=== PATIENT | male | born 1995 | race Caucasian/White ===

== ENCOUNTER 2022-07-04 13:35 | Emergency (ER) | payer OTHER ==
[2022-07-04 13:46] VITALS: BP 170/84
--- NOTE | 2022-07-04 14:35 | XRAY Report ---
PROCEDURE: Ankle 3 View LT INDICATIONS: Trauma TECHNIQUE: 3 views of the ankle were acquired. COMPARISON: None. FINDINGS: Bones: There is a nondisplaced oblique fracture involving the base of the left fifth metatarsal. Oth er visualized osseous structures appear intact. Normal alignment. Ankle mortise appears intact. No duenas spicious bony lesions. Soft tissues: No tibiotalar joint effusion. Achilles tendon appears normal. Moderate soft tissue s welling overlying the lateral malleolus. IMPRESSION: Nondisplaced base of left fifth metatarsal fracture. Moderate soft tissue swelling overlying the late ral malleolus. Reviewed by: Tim Brand MD on 07/04/2022 2:34 PM PDT Approved by: Tim Brand MD on 07/04/2022 2:34 PM PDT Station ID: [id number]
[2022-07-04] MEDS ORDERED: oxyCODONE 5 MG TABLET PO STA (15:11)
--- NOTE | 2022-07-04 15:18 | ED Physician Documentation ---
History of Present Illness - Stated complaint Stated Complaint: LT ANKLE SWOLLEN - Chief complaint Chief Complaint: Trauma Ext - Additonal information Additional information: 27-year-old male presents emergency department for evaluation of acute left foot and ankle pain. Was playing basketball when he landed on another player's foot inverting the ankle. He had immediate pain as well as swelling on the lateral malleoli are area. Unable to bear weight. No history of previous injury. Review of Systems Musculoskeletal: reports: Extremity pain, Joint pain PD PAST MEDICAL HISTORY - Present Medications Home Medications: Ambulatory Orders Medication Instructions Recorded Confirmed oxyCODONE [Roxicodone] 5 mg PO TID PRN #20 tablet 07/04/22 - Allergies Allergies/Adverse Reactions: Allergies Allergy/AdvReac Type Severity Reaction Status Date / Time No Known Drug Allergies Allergy Verified 07/04/22 13:46 PD ED PE EXPANDED - Extremities Extremities: Left ankle (Significant swelling and ecchymosis of the lateral malleolus. Tenderness is elicited just distal to this region. Some tenderness elicited at the base of the fifth metatarsal. 2+ DP pulse. Neurovascular intact. No obvious deformity) Results - Vitals Vitals: Vital Signs - 24 hr 07/04/22 13:44 Temperature 36.7 C Heart Rate 80 Respiratory 16 Rate Blood Pressure 170/84 H O2 Saturation 100 Oxygen O2 Source Room air - Rads (name of study) left ankle Relevant Findings:: Final report received (Nondisplaced fracture at the base of the left fifth metatarsal. Moderate soft tissue swelling overlying the lateral malleolus) PD Medical Decision Making - ED course Complexity details: reviewed results, re-evaluated patient, d/w patient ED course: 27-year-old male presents emergency department for evaluation of acute left ankle and foot pain. He inverted the ankle when Playing football. On exam he has significant swelling and ecchymosis distal to the lateral malleolus but there is also pain at the base of the lateral foot. An x-ray is interpreted by the radiologist shows a nondisplaced left fifth metatarsal fracture. Given this injury the patient was placed in a 3 sided short leg fiberglass splint. Neurovascular intact post splinting. Patient was advised that this is a nonweightbearing injury. He was given crutches. Routine splint care was also discussed. Patient will follow-up with [facility] on Thursday to obtain the appropriate orthopedics referral. A limited prescription for oxycodone has been sent to the patient's preferred pharmacy. The usual emergent return precautions were discussed I am prescribing a short course of short-acting opioid pain medication for this patient. 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 I have discussed that the opioids are for short term therapy only, and will not be refilled from the ED. Departure - Departure Disposition: 01 Home, Self Care Clinical Impression: Metatarsal stress fracture of left foot Qualifiers: Encounter type: initial encounter Qualified Code(s): M84.375A - Stress fracture, left foot, initial encounter for fracture Condition: Stable Record reviewed to determine appropriate education?: Yes Instructions: ED Fx Foot, ED Cast Care Plaster Ch Prescriptions: oxyCODONE [Roxicodone] 5 mg PO TID PRN #20 tablet PRN Reason: Pain Comments: Unfortunately the x-ray today shows that you have a nondisplaced fracture at the bottom or base of your left fifth metatarsal. These types of fractures are typically considered unstable and are nonweightbearing until seen by an orthopedist. You have been placed in a temporary fiberglass splint. You will need to discuss with [facility] on Thursday and urgent referral to orthopedics. The splint cannot get wet. Should it get wet, you feel that it is too tight, you lose sensation or have discoloration of your toes you should return immediately to the ER to have it reevaluated. Over the next several days use the crutches for ambulation. Again you are to be nonweightbearing. You should elevate your foot as much as you can especially at night. This will help reduce swelling and improve pain. In general I do recommend that you take Tylenol or ibuprofen [id number] for foot discomfort. For more severe pain I have sent a limited prescription of oxycodone to your preferred pharmacy. I am prescribing a short course of narcotic pain medication for you. These are potentially dangerous and addictive medications that should be used carefully. These medications may constipate you. Take an mvuw-tqo-pcqdncx stool softener (docusate) twice daily with plenty of water while taking these medications. If you go 24 hours without a bowel movement, take [id number] miralax, per package instructions. Do not drink or drive while taking these medications. If you received narcotic or sedating medications while in the emergency department, do not drive for 24 hours. Store this medication in a safe, secure place and out of reach of children. It is a violation of federal law to give or sell this medication to another person or to use in a manner other than prescribed. The ED will not refill narcotic prescriptions, including prescriptions lost or stolen. To dispose of unwanted medications: 1. [facility] at [address] in [place] has a medication drop box. They accept prescription medications (in pill form) Thursday through Thursday 9:00 a.m. to 5:00 p.m. 2. [facility] [employer] [facility] accepts prescription medications (in pill form only) for disposal year round. Call for more information. 3. Contact the [facility] for the next [facility] sponsored prescription drug collection event. , [phone], or [phone]; Note that many narcotic pain relievers also contain Tylenol/acetaminophen. Please ensure that your total dose of acetaminophen from all sources does not exceed 3 g (3000 mg) per day.
== END 2022-07-04 16:00 | disposition home or self-care (01) ==
LOC: ED 13:35
DX: M84.375A Stress fracture, left foot, initial encounter for fracture (principal); X50.1XXA Overexertion from prolonged static or awkward postures, initial encounter; Y93.61 Activity, american tackle football
CPT/HCPCS: 73610; 99283; A9270